=== PATIENT | female | born 1960 | race Caucasian/White ===

== ENCOUNTER 2018-04-19 16:00 | Outpatient (CLI) | payer OTHER | END 2018-04-19 16:01 | disposition home or self-care (01) | LOC: SLEEPLAB 16:00 | PROVIDERS: ATTEND Family Medicine | DX: G47.33 Obstructive sleep apnea (adult) (pediatric) (principal); G47.00 Insomnia, unspecified; R06.83 Snoring; F41.9 Anxiety disorder, unspecified; Z68.31 Body mass index [BMI] 31.0-31.9, adult | CPT/HCPCS: 95806 ==

== ENCOUNTER 2018-05-18 09:26 | Outpatient (CLI) | payer OTHER ==
--- NOTE | 2018-05-18 12:56 | CT ---
ABDOMEN CT WITHOUT CONTRAST: PELVIS CT WITHOUT CONTRAST: HISTORY: Left-sided back pain, starting yesterday. The patient has a history of small renal calculi and a Lap -Band. COMPARISON: None. TECHNIQUE: Abdomen and pelvis CT are performed without contrast. Coronal reformatted images are submitted. FINDINGS: The lung bases are clear. Heart size is normal. No pericardial fluid. The descending thoracic aort a and the abdominal aorta have a normal caliber. No periaortic fat stranding. Note is made of a gastric Lap-Band. Limited evaluation of the alimentary canal due to lack of oral c ontrast. Gastric Lap-Band appears to be unremarkable. No evidence of small bowel obstruction. The ileocecal junction is normal. There is a reported history of a previous appendectomy. New inflammat ion of the cecal apex. There is scattered fecal material in a nondistended, nondilated colon. Limited evaluation of the solid organs by lack of IV contrast. Grossly, no solid organ abnormality. No gastrohepatic, retrocrural, or periportal lymphadenopathy. No mesenteric mass, lymphadenopathy, free air, or free fluid. There is a focal area of necrotic fat with peripheral calcification in the left lower quadrant, measuring 1 cm. Bilaterally, no hydronephrosis, nephrolithiasis, or perinephric fat stranding. The bilateral ureters have a normal caliber. No hydroureter, periureteral fat stranding, or ureterolithiasis. The uterus is unremarkable. The adnexal structures are unremarkable. The urinary bladder does not d emonstrate any calculi. No pelvic mass, lymphadenopathy, free air, or free fluid. No lytic or blastic lesions of the osseous structures. Previous vertebroplasty change at three diffe rent levels is noted. IMPRESSION: No evidence of nephrolithiasis or obstructive uropathy. POS: [facility]
== END 2018-05-18 09:27 | disposition home or self-care (01) ==
LOC: CT 09:26
PROVIDERS: ATTEND Family Medicine
DX: R10.9 Unspecified abdominal pain (principal)
CPT/HCPCS: 74176

== ENCOUNTER 2019-05-30 13:55 | Outpatient (CLI) | payer OTHER ==
--- NOTE | 2019-05-30 14:22 | RAD ---
XR Hip Rt 2-3 View HISTORY: Chronic right hip pain COMPARISON: None. FINDINGS: The bones appear demineralized. Vertebroplasty changes at L4 and L5 are noted. The right hip shows a normal-appearing joint space no osteophytic change. No fractures. IMPRESSION: Unremarkable right hip.
== END 2019-05-30 13:56 | disposition home or self-care (01) ==
LOC: RAD-LEX 13:55 → SCSRAD 13:56
PROVIDERS: ATTEND Physician Assistant
DX: M25.551 Pain in right hip (principal); M81.0 Age-related osteoporosis without current pathological fracture

== ENCOUNTER 2019-07-11 12:00 | Outpatient (CLI) | payer OTHER ==
--- NOTE | 2019-07-11 12:30 | RAD ---
XR Sacrum and Coccyx STANDARD HISTORY: Coccydynia, fell yesterday getting out of the car FINDINGS: No acute fracture or dislocation is identified. There are postop changes of vertebroplasty at L4 and L5 levels.
== END 2019-07-11 12:01 | disposition home or self-care (01) ==
LOC: SCSRAD 12:00
PROVIDERS: ATTEND Family Medicine
DX: M53.3 Sacrococcygeal disorders, not elsewhere classified (principal); Z98.890 Other specified postprocedural states
CPT/HCPCS: 72220

== ENCOUNTER 2022-07-16 08:15 | Outpatient (CLI) | payer OTHER | END 2022-07-16 08:16 | disposition home or self-care (01) | LOC: SCSRAD 08:15 | PROVIDERS: ATTEND Internal Medicine Rheumatology | DX: M54.50 Low back pain, unspecified (principal); M54.6 Pain in thoracic spine; M81.0 Age-related osteoporosis without current pathological fracture; M48.56XS Collapsed vertebra, not elsewhere classified, lumbar region, sequela of fracture; E55.9 Vitamin D deficiency, unspecified; Z98.890 Other specified postprocedural states | CPT/HCPCS: 72100 ==